=== PATIENT | male | born 1945 | race Caucasian/White ===

== ENCOUNTER 2018-10-02 15:27 | Inpatient (IN) | payer MEDICARE, BC ==
[~2018-10-02] VITALS: Ht 170.2 cm; Wt 89.4 kg
[2018-10-02] MEDS ORDERED: KETOROLAC 15 MG INJ IV STA (17:38)
[2018-10-02] MEDS ORDERED: ONDANSETRON 4 MG INJ IV STA (17:38)
[2018-10-02] MEDS ORDERED: SOD CHLORIDE 0.9% 1,000 ML IV STA (17:38)
[2018-10-02] MEDS ORDERED: CEFTRIAXONE 1 GM/50 ML (PMX) 50 ML IVPB ONE (20:30)
[2018-10-02] MEDS ORDERED: ACETAMINOPHEN 325 MG TAB PO PRN ×2 (21:00→22:30)
[2018-10-02] MEDS ORDERED: ONDANSETRON 4 MG INJ IV PRN ×2 (21:00→22:30)
[2018-10-02] MEDS ORDERED: NACL 0.9% 3 ML SYG IV SCH (22:30)
[2018-10-02] MEDS ORDERED: ALBUTEROL/IPRATROPIUM (NEB) 3 ML AMP HHN PRN (22:30)
[2018-10-02] MEDS ORDERED: TAMSULOSIN (SR) 0.4 MG CAP PO ONE (22:30)
--- NOTE | 2018-10-02 22:52 | CONS ---
Assessment/Plan Assessment/Plan Hospital Course (Demo Recall) 73-year-old male started having severe left flank pain with nausea and vomiting at 9 AM earlier today. He came into the emergency room and had a CT scan of the abdomen and pelvis and that showed: 1. 10 mm calcified stone lodged at the left ureteropelvic junction resulting in left-sided hydronephrosis. 2. Right-sided hydronephrosis with a decompressed renal pelvis and ureter versus parapelvic cyst. 3. 2 low attenuation masses within the right hepatic lobe. Hounsfield units suggest that they are simple cysts. 4. Small diverticulum posterior left urinary bladder wall into which the left ureter drains. 5. 1.5 cm sclerotic/blastic lesion right ilium Patient denies any prior history of kidney stones but he has had bladder stones that were removed and he underwent a transurethral resection of the prostate in May 2016. There was no cancer in his prostate. He did see his urologist few days ago and had a PSA but he does not know the results yet. On the physical exam he does have left flank tenderness. The stone is located just at the left ureteropelvic junction or little bit below it. Impression: Left upper ureteral stone at the ureteropelvic junction with obstruction and hydronephrosis. Plan: Pain medications, KUB, we most likely have to do cystoscopy and try to push the stone back into the kidney and do extracorporeal shockwave lithotripsy or put the JJ stent and at a later date to the extracorporeal shockwave lithotripsy. Consultation Date/Type/Reason Admit Date/Time October 02, 2018 Date of Consultation: Oct 02, 2018 Type of Consult Urology Reason for Consultation Left upper ureteral stone Requesting Provider: KATHRYN GANDARA MD Date/Time of Note DATE: 10/02/18 TIME: 22:41 Hx of Present Illness 73-year-old male started having severe left flank pain with nausea and vomiting at 9 AM earlier today. He came into the emergency room and had a CT scan of the abdomen and pelvis and that showed: 1. 10 mm calcified stone lodged at the left ureteropelvic junction resulting in left-sided hydronephrosis. 2. Right-sided hydronephrosis with a decompressed renal pelvis and ureter versus parapelvic cyst. 3. 2 low attenuation masses within the right hepatic lobe. Hounsfield units suggest that they are simple cysts. 4. Small diverticulum posterior left urinary bladder wall into which the left ureter drains. 5. 1.5 cm sclerotic/blastic lesion right ilium Patient denies any prior history of kidney stones but he has had bladder stones that were removed and he underwent a transurethral resection of the prostate in May 2016. There was no cancer in his prostate. He did see his urologist few days ago and had a PSA but he does not know the results yet. Constitutional: no complaints Eyes: no complaints ENT: no complaints Respiratory: no complaints; No wheezing Cardiovascular: no complaints Gastrointestinal: nausea (Earlier today), vomiting Genitourinary: flank pain (Left side) Musculoskeletal: no complaints Skin: other (Possible psoriasis around the anal area) Neurologic: no complaints Endocrine: no complaints Lymphatic: no complaints Psychological: no complaints Past Medical History Medications Current Medications Ondansetron HCl (Zofran Inj) 4 mg BRIDGE ORDER PRN IV NAUSEA/VOMITING; Start 10/02/18 at 21:00; Stop 10/03/18 at 20:59 Acetaminophen (Tylenol Tab) 650 mg ER BRIDGE PRN PO .MILD PAIN 1-3 OR TEMP; Start 10/02/18 at 21:00; Stop 10/03/18 at 20:59 Sodium Chloride 1,000 ml @ 100 mls/hr Q10H IV ; Start 10/02/18 at 22:13 IV Flush (NS 3 ml) 3 ml PER PROTOCOL IV ; Start 10/02/18 at 22:30 Ondansetron HCl (Zofran Inj) 4 mg Q6H PRN IV NAUSEA/VOMITING; Start 10/02/18 at 22:30 Acetaminophen (Tylenol Tab) 650 mg Q6H PRN PO .PAIN 1-3 OR TEMP; Start 10/02/18 at 22:30 Heparin Sodium (Porcine) (Heparin (5000 Units/1ml)) 5,000 unit Q12 SC ; Start 10/03/18 at 09:00 Albuterol/ Ipratropium (Duoneb) 3 ml Q2H RESP THERAPY PRN HHN SHORTNESS OF BREATH; Start 10/02/18 at 22:30 Ceftriaxone Sodium 50 ml @ 100 mls/hr DAILY IVPB ; Start 10/03/18 at 09:00 Tamsulosin HCl (Flomax) 0.4 mg QHS PO ; Start 10/03/18 at 21:00 Allergies: Coded Allergies: No Known Allergy (Unverified , 10/02/18) Past Surgical History Past Surgical Hx: other (Hernia repair, transurethral resection of prostate, removal of bladder stones.) Social History Alcohol Use: none Smoking Status: Former smoker Drug Use: none Other Social History 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 Scrotum and testes are sensitive) Musculoskeletal: nl extremities to inspection Extremities: No calf tenderness Neurological: nl mental status Skin: nl turgor Results Result Diagram: 10/02/18 1701 10/02/18 1701 Results 24hrs Laboratory Tests Test 10/02/18 17:01 White Blood Count 7.2 Red Blood Count 4.89 Hemoglobin 14.2 Hematocrit 43.5 Mean Corpuscular Volume 89.0 Mean Corpuscular Hemoglobin 29.0 Mean Corpuscular Hemoglobin Concent 32.6 Red Cell Distribution Width 13.2 Platelet Count 170 Mean Platelet Volume 11.0 H Immature Granulocytes % 0.300 Neutrophils % 92.6 H Lymphocytes % 3.3 L Monocytes % 3.6 Eosinophils % 0.1 Basophils % 0.1 Nucleated Red Blood Cells % 0.0 Immature Granulocytes # 0.020 Neutrophils # 6.7 Lymphocytes # 0.2 L Monocytes # 0.3 Eosinophils # 0.0 Basophils # 0.0 Nucleated Red Blood Cells # 0.0 Urine Color YELLOW Urine Clarity SLIGHTLY CLOUDY A Urine pH 5.0 Urine Specific [place] 1.020 Urine Ketones TRACE A Urine Nitrite NEGATIVE Urine Bilirubin NEGATIVE Urine Urobilinogen NEGATIVE Urine Leukocyte Esterase NEGATIVE Urine Microscopic RBC > 182 H Urine Microscopic WBC 2 Urine Mucus FEW A Urine Hemoglobin 3+ H Urine Glucose NEGATIVE Urine Total Protein NEGATIVE Sodium Level 142 Potassium Level 4.7 Chloride Level 110 Carbon Dioxide Level 24 Anion Gap 8 Blood Urea Nitrogen 22 H Creatinine 1.64 H Est Glomerular Filtrat Rate mL/min Glucose Level 125 Calcium Level 8.9 Total Bilirubin 0.8 Direct Bilirubin 0.00 Indirect Bilirubin 0.8 Aspartate Amino Transf (AST/SGOT) 31 Alanine Aminotransferase (ALT/SGPT) 16 Alkaline Phosphatase 49 Total Protein 6.7 Albumin 3.9 Globulin 2.80 Albumin/Globulin Ratio 1.39 Lipase [address] scan of the abdomen and pelvis: 1. 10 mm calcified stone lodged at the left ureteropelvic junction resulting in left-sided hydronephrosis. 2. Right-sided hydronephrosis with a decompressed renal pelvis and ureter versus parapelvic cyst. 3. 2 low attenuation masses within the right hepatic lobe. Hounsfield units suggest that they are simple cysts. 4. Small diverticulum posterior left urinary bladder wall into which the left ureter drains. 5. 1.5 cm sclerotic/blastic lesion right ilium Medications Medication Current Medications Ondansetron HCl (Zofran Inj) 4 mg BRIDGE ORDER PRN IV NAUSEA/VOMITING; Start 10/02/18 at 21:00; Stop 10/03/18 at 20:59 Acetaminophen (Tylenol Tab) 650 mg ER BRIDGE PRN PO .MILD PAIN 1-3 OR TEMP; Start 10/02/18 at 21:00; Stop 10/03/18 at 20:59 Sodium Chloride 1,000 ml @ 100 mls/hr Q10H IV ; Start 10/02/18 at 22:13 IV Flush (NS 3 ml) 3 ml PER PROTOCOL IV ; Start 10/02/18 at 22:30 Ondansetron HCl (Zofran Inj) 4 mg Q6H PRN IV NAUSEA/VOMITING; Start 10/02/18 at 22:30 Acetaminophen (Tylenol Tab) 650 mg Q6H PRN PO .PAIN 1-3 OR TEMP; Start 10/02/18 at 22:30 Heparin Sodium (Porcine) (Heparin (5000 Units/1ml)) 5,000 unit Q12 SC ; Start 10/03/18 at 09:00 Albuterol/ Ipratropium (Duoneb) 3 ml Q2H RESP THERAPY PRN HHN SHORTNESS OF BREATH; Start 10/02/18 at 22:30 Ceftriaxone Sodium 50 ml @ 100 mls/hr DAILY IVPB ; Start 10/03/18 at 09:00 Tamsulosin HCl (Flomax) 0.4 mg QHS PO ; Start 10/03/18 at 21:00 NORRIS TERAN MD Oct 02, 2018 22:52
[2018-10-02 23:00] VITALS: BP 158/74; PULSE 55; RESP 16
[2018-10-02 23:08] VITALS: Ht 170.2 cm; Wt 89.4 kg
[2018-10-02] MEDS: SOD CHLORIDE 0.9% 1,000 ML IV SCH (23:34)
[2018-10-03] VITALS (14 sets, daily range): BP systolic 117–164; BP diastolic 58–82; PULSE 50–60; RESP 11–19
[2018-10-03] MEDS ORDERED: TERA2CAP3 PO (00:44)
--- NOTE | 2018-10-03 06:19 | HP ---
Date/Time of Note Date/Time of Note DATE: 10/02/18 TIME: 23:30 Assessment/Plan VTE Prophylaxis Pharmacological prophylaxis: heparin Lines/Catheters IV C[facility] Type [facility] Peripheral IV Urinary Cath still in place: No Assessment/Plan Assessment/Plan 1. left ureteropelvic junction stone with hydronephrosis -IV fluid -Flomax -Pain management -IV antibiotic -Urology consult -CT also shows right-sided hydronephrosis 2. UTI with likely left-sided pyelonephritis -See #1 -Follow-up urine culture result 3. 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 Right ilium sclerotic/blastic lesion, measuring 1.5 cm -This is concerning for malignancy -CT also shows 2 right hepatic lobe masses, however per radiology most likely cysts -Check CEA, alpha-fetoprotein, PSA -Last colonoscopy a year ago with removal of 3 polyps. -Oncology consult with Dr. Eduardo. Patient reported that he follows up with Dr. Eduardo, launch operator oncologist for "abnormal protein" 5. History of BPH, status post TURP -Continue home med Result Diagram: 10/02/18 1701 10/02/18 1701 Results 24hrs Laboratory Tests Test 10/02/18 17:01 10/02/18 23:53 White Blood Count 7.2 Red Blood Count 4.89 Hemoglobin 14.2 Hematocrit 43.5 Mean Corpuscular Volume 89.0 Mean Corpuscular Hemoglobin 29.0 Mean Corpuscular Hemoglobin Concent 32.6 Red Cell Distribution Width 13.2 Platelet Count 170 Mean Platelet Volume 11.0 H Immature Granulocytes % 0.300 Neutrophils % 92.6 H Lymphocytes % 3.3 L Monocytes % 3.6 Eosinophils % 0.1 Basophils % 0.1 Nucleated Red Blood Cells % 0.0 Immature Granulocytes # 0.020 Neutrophils # 6.7 Lymphocytes # 0.2 L Monocytes # 0.3 Eosinophils # 0.0 Basophils # 0.0 Nucleated Red Blood Cells # 0.0 Urine Color YELLOW Urine Clarity SLIGHTLY CLOUDY A Urine pH 5.0 Urine Specific [place] 1.020 Urine Ketones TRACE A Urine Nitrite NEGATIVE Urine Bilirubin NEGATIVE Urine Urobilinogen NEGATIVE Urine Leukocyte Esterase NEGATIVE Urine Microscopic RBC > 182 H Urine Microscopic WBC 2 Urine Mucus FEW A Urine Hemoglobin 3+ H Urine Glucose NEGATIVE Urine Total Protein NEGATIVE Sodium Level 142 Potassium Level 4.7 Chloride Level 110 Carbon Dioxide Level 24 Anion Gap 8 Blood Urea Nitrogen 22 H Creatinine 1.64 H Est Glomerular Filtrat Rate mL/min Glucose Level 125 Calcium Level 8.9 Total Bilirubin 0.8 Direct Bilirubin 0.00 Indirect Bilirubin 0.8 Aspartate Amino Transf (AST/SGOT) 31 Alanine Aminotransferase (ALT/SGPT) 16 Alkaline Phosphatase 49 Total Protein 6.7 Albumin 3.9 Globulin 2.80 Albumin/Globulin Ratio 1.39 Lipase 54 Prothrombin Time 13.5 Prothrombin Time Ratio 1.1 INR International Normalized Ratio 1.02 Activated Partial Thromboplast Time 24.7 Prostate Specific Antigen 1.1 HPI/ROS Admit Date/Time Admit Date/Time October 02, 2018 Hx of Present Illness Patient is a 73-year-old male with a history of BPH status post TURP, bladder stone X2 status post surgical removal (over 10 years ago), left-sided kidney stone about 4 years ago, right inguinal surgery, migraine headache, genital herpes who presented to ER complaining of abdominal pain. Pain has been going on for about 3 days and is mainly located in the left lower quadrant area. Reported nausea and vomiting. He was sent by his PCP for evaluation. CT abdomen/pelvis in the ER shows the followin. 10 mm calcified stone lodged at the left ureteropelvic junction resulting in left-sided hydronephrosis. 2. Right-sided hydronephrosis with a decompressed renal pelvis and ureter versus parapelvic cyst. 3. 2 low attenuation masses within the right hepatic lobe. Hounsfield units suggest that they are simple cysts. 4. Small diverticulum posterior left urinary bladder wall into which the left ureter drains. 5. 1.5 cm sclerotic/blastic lesion right ilium On further questioning, patient stated that he has been following up with Dr. Eduardo for " abnormal protein". He said he had a colonoscopy a year ago with removal of 2 or 3 polyps. Denies dark stool or BRBPR. PMH/Family/Social Past Medical History Past Surgical Hx: other Family History Significant Family History: no pertinent family hx Social History Alcohol Use: none Smoking Status: Never smoker Drug Use: none Exam Constitutional: other (No acute distress) Head: normocephalic, atraumatic Eyes: EOMI, PERRL Respiratory: clear to auscultation, normal air movement Cardiovascular: regular rate and rhythm Gastrointestinal: soft Extremities: normal pulses Medications Current Medications Ondansetron HCl (Zofran Inj) 4 mg BRIDGE ORDER PRN IV NAUSEA/VOMITING; Start 10/02/18 at 21:00; Stop 10/03/18 at 20:59 Acetaminophen (Tylenol Tab) 650 mg ER BRIDGE PRN PO .MILD PAIN 1-3 OR TEMP; Start 10/02/18 at 21:00; Stop 10/03/18 at 20:59 Sodium Chloride 1,000 ml @ 100 mls/hr Q10H IV Last administered on 10/02/18at 23:34; Admin Dose 100 MLS/HR; Start 10/02/18 at 22:13 IV Flush (NS 3 ml) 3 ml PER PROTOCOL IV ; Start 10/02/18 at 22:30 Ondansetron HCl (Zofran Inj) 4 mg Q6H PRN IV NAUSEA/VOMITING; Start 10/02/18 at 22:30 Acetaminophen (Tylenol Tab) 650 mg Q6H PRN PO .PAIN 1-3 OR TEMP; Start 10/02/18 at 22:30 Heparin Sodium (Porcine) (Heparin (5000 Units/1ml)) 5,000 unit Q12 SC ; Start 10/03/18 at 09:00 Albuterol/ Ipratropium (Duoneb) 3 ml Q2H RESP THERAPY PRN HHN SHORTNESS OF BREATH; Start 10/02/18 at 22:30 Ceftriaxone Sodium 50 ml @ 100 mls/hr DAILY IVPB ; Start 10/03/18 at 09:00 Tamsulosin HCl (Flomax) 0.4 mg QHS PO ; Start 10/03/18 at 21:00 Coded Allergies: No Known Allergy (Unverified , 10/02/18) Past Surgical History Past Surgical Hx: other (Hernia repair, transurethral resection of prostate, removal of bladder stones.) Social History Alcohol Use: none Smoking Status: Former smoker Drug Use: none Exam/Review of Systems Vital Signs Vitals Vital Signs Date Temp Pulse Resp B/P (MAP) Pulse Ox O2 O2 Flow FiO2 Time Delivery Rate 10/02/18 97.9 55 16 158/74 97 Room Air 23:00 (102) Intake and Output 10/02/18 10/02/18 10/03/18 1515:00 23:00 07:00 IntakeIntake Total 1050 ml 550 ml BalanceBalance 1050 ml 550 ml KATHRYN GANDARA MD Oct 03, 2018 06:19
[2018-10-03] MEDS: HEPARIN 5,000 UNIT/1 ML VIAL SC SCH ×2 (08:29→22:18)
[2018-10-03] MEDS: CEFTRIAXONE 1 GM/50 ML (PMX) 50 ML IVPB SCH (08:45)
[2018-10-03] MEDS: SOD CHLORIDE 0.9% 1,000 ML IV SCH ×2 (08:45→18:05)
--- NOTE | 2018-10-03 15:00 | RADRPT ---
Vent Rate: 54 bpm RR Interval: 1112 msec NH Interval: 168 msec QRS Duration: 93 msec QT Interval: 428 msec QTC Interval: 406 msec P-R-T [place]: 59 - -30 - 43 degrees Sinus rhythm...normal P axis, V-rate 50- 99 Left axis deviation...QRS axis (-30,-90) Low voltage, extremity leads...all extremity leads <0.5mV Electronically Signed By: Perry Rebollar
--- NOTE | 2018-10-03 15:26 | CONS ---
DATE OF ADMISSION: 10/02/2018 DATE OF CONSULTATION: 10/03/2018 TYPE OF CONSULTATION: Nephrology. REASON FOR CONSULTATION: Acute kidney injury. PHYSICIAN REQUESTING CONSULT: Dr. Kathryn Gandara, and STORAGE ARCHITECT, . HISTORY OF PRESENT ILLNESS: This is a 73-year-old male with a past medical history of BPH, status po st TURP, history of bladder stone, status post surgical removal 10 years ago, history of left-sided k idney stone, history of migraine, history of genital herpes, who presents to [facility] Room with abdominal pain. The patient states for the past 3 days he has been having left-sided quadrant pain associated with nausea, vomiting. As a result, he came to Emergency Room, the patient had a CT scan which showed evidence of a 10 mm calcified stone in the right-sided ureteropelvic junc tion with decompressed renal pelvis and ureter, pelvic cyst. PHYSICAL EXAMINATION: In the emergency room, the patient was placed on IV fluids and admitted to med /surg for evaluation. The patient was seen by Dr. Abrams, urologist with expectation of possible cy stoscopy. In terms of patient's renal history, the patient denies any prior history of acute kidney injury, chr onic kidney disease. On admission, patient had creatinine 1.61 mg/dL. The patient's creatinine has increased to 1.8 mg/dL, patient denies any hemoptysis, hematemesis or hematochezia. PAST MEDICAL HISTORY: History of benign prostatic hypertrophy, history of kidney stone, history of s clerotic lesions. FAMILY HISTORY: No family history of kidney disease. SOCIAL HISTORY: Does not smoke or do drugs. Positive alcohol use. ALLERGIES: No known drug allergies. PAST SURGICAL HISTORY: The patient is status post TURP, status post bladder stone physical removal, possible hernia repair. REVIEW OF SYSTEMS: A 14-point review of systems conducted. Pertinent positives stated in HPI, other ghosh negative. PHYSICAL EXAMINATION: VITAL SIGNS: Blood pressure is 152/77, respiration 19, pulse 60, temperature 98.0. HEENT: Head is normocephalic. NECK: Supple. HEART: Regular rate. LUNGS: Show diminished breath sounds at the base. ABDOMEN: Soft, nontender to palpation without rebound or guarding. EXTREMITIES: Negative for clubbing, cyanosis, no edema. DERMATOLOGIC: No rashes. MUSCULOSKELETAL: No joint effusion. NEUROLOGIC: No focal deficits. MEDICATIONS: Have been reviewed. LABORATORY DATA: Has been reviewed. IMAGING STUDIES: Have been reviewed. ASSESSMENT AND PLAN: This is a 73-year-old male who presents with: 1. Nonoliguric acute kidney injury with unknown baseline creatinine. Etiology of acute kidney injur y is secondary to obstructive uropathy, bilateral hydronephrosis due to ureteropelvic stone. Other p ossibilities such as tubular injury or interstitial nephritis are less likely given clinical presenta tion. Recommendation at this point, continue the patient on aggressive IV hydration. Agree with a u rological evaluation and possible cystoscopy with stone removal. Would also continue antibiotic ther apy. We will otherwise continue supportive care, renally dose all meds, avoid nephrotoxins. 2. Anemia. Continue to monitor hemoglobin and hematocrit levels. 3. Mineral bone disorder, monitor calcium and phosphorus levels. 4. Hyperchloremic metabolic acidosis. Continue to monitor. 5. Left ureteropelvic junction with hydronephrosis. The patient has been seen by urology pending po ssible cystoscopy with stone retraction. 6. Urinary tract infection. Continue IV antibiotics. 7. Right hepatic lobe mass, likely cyst. Continue to monitor. 8. Right ilium lesion. The patient is undergoing workup. Follow up CEA, alpha fetoprotein, PSA lev el. Continue to monitor. 9. Benign prostatic hypertrophy status post TURP. Continue to monitor. Thank you for this interesting consult. It will be a pleasure to follow patient with you throughout the hospital course. Dictated By: AIDEN GOMES DO NR/NTS Conf#: [id number] DID#: [id number] CC: KATHRYN GANDARA MD;*EndCC*
--- NOTE | 2018-10-03 16:09 | PN ---
Date/Time of Note Date/Time of Note DATE: 10/03/18 TIME: 16:04 Assessment/Plan VTE Prophylaxis Risk score (from Ns)>0 risk: 1 SCD applied (from [facility]): No SCD contraindicated: other Pharmacological prophylaxis: heparin Lines/Catheters IV Catheter Type (from [facility]): Peripheral IV Urinary Cath still in place: No Assessment/Plan Hospital Course 1. left ureteropelvic junction stone with hydronephrosis -IV fluid -Flomax -Pain management -Urology eval pending 2. UTI with likely left-sided pyelonephritis - continue on abx for now -Follow-up urine culture result 3. 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 Eduardo was notified) - f/u recommendations -CT also shows 2 right hepatic lobe masses, however per radiology most likely cysts -Last colonoscopy a year ago with removal of 3 polyps. 5. History of BPH, status post TURP - continue on flomax DISPO.PLAN: continue pain management. continue with abx. urology eval is pending. continue supportive care for now Discussed POC with Dr. Land Result Diagram: 10/03/18 0552 10/03/18 0552 Results 24hrs Laboratory Tests Test 10/02/18 17:01 10/02/18 23:53 10/03/18 05:52 White Blood Count 7.2 4.6 #L Red Blood Count 4.89 4.13 L Hemoglobin 14.2 11.9 L Hematocrit 43.5 36.5 L Mean Corpuscular Volume 89.0 88.4 Mean Corpuscular Hemoglobin 29.0 28.8 L Mean Corpuscular 32.6 32.6 Hemoglobin Concent Red Cell Distribution Width 13.2 13.4 Platelet Count 170 154 Mean Platelet Volume 11.0 H 11.3 H Immature Granulocytes % 0.300 0.400 Neutrophils % 92.6 H 68.6 Lymphocytes % 3.3 L 20.1 Monocytes % 3.6 9.8 Eosinophils % 0.1 0.9 Basophils % 0.1 0.2 Nucleated Red Blood Cells % 0.0 0.0 Immature Granulocytes # 0.020 0.020 Neutrophils # 6.7 3.1 Lymphocytes # 0.2 L 0.9 Monocytes # 0.3 0.5 Eosinophils # 0.0 0.0 Basophils # 0.0 0.0 Nucleated Red Blood Cells # 0.0 0.0 Urine Color YELLOW Urine Clarity SLIGHTLY CLOUDY A Urine pH 5.0 Urine Specific Orange 1.020 Urine Ketones TRACE A Urine Nitrite NEGATIVE Urine Bilirubin NEGATIVE Urine Urobilinogen NEGATIVE Urine Leukocyte Esterase NEGATIVE Urine Microscopic RBC > 182 H Urine Microscopic WBC 2 Urine Mucus FEW A Urine Hemoglobin 3+ H Urine Glucose NEGATIVE Urine Total Protein NEGATIVE Sodium Level 142 142 Potassium Level 4.7 4.6 Chloride Level 110 112 H Carbon Dioxide Level 24 25 Anion Gap 8 5 Blood Urea Nitrogen 22 H 24 H Creatinine 1.64 H 1.82 H Est Glomerular Filtrat Rate mL/min Glucose Level 125 91 Calcium Level 8.9 8.0 L Total Bilirubin 0.8 1.0 Direct Bilirubin 0.00 0.00 Indirect Bilirubin 0.8 1.0 Aspartate Amino 31 13 #L Transf (AST/SGOT) Alanine 16 17 Aminotransferase (ALT/SGPT) Alkaline Phosphatase 49 31 L Total Protein 6.7 5.0 #L Albumin 3.9 2.8 #L Globulin 2.80 2.20 Albumin/Globulin Ratio 1.39 1.27 Lipase 54 Prothrombin Time 13.5 Prothrombin Time Ratio 1.1 INR International 1.02 Normalized Ratio Activated Partial Thromboplast 24.7 Time Prostate Specific Antigen 1.1 Phosphorus Level 4.1 Magnesium Level 1.9 Alpha Fetoprotein 5.99 Carcinoembryonic Antigen 0.4 Subjective 24 Hr Interval Summary Free Text/Dictation was seen walking around unit during interview., reports less pain Exam/Review of Systems Exam Vitals Vital Signs Date Temp Pulse Resp B/P (MAP) Pulse Ox O2 O2 Flow FiO2 Time Delivery Rate 10/03/18 98.1 58 18 117/58 98 Room Air 14:00 (77) Intake and Output 10/02/18 10/02/18 10/03/18 1414:59 22:59 06:59 IntakeIntake Total 1050 ml 550 ml BalanceBalance 1050 ml 550 ml Constitutional: alert, oriented Psych: nl mood/affect Head: normocephalic Neck: supple, non-tender Respiratory: clear to auscultation Cardiovascular: regular rate and rhythm Gastrointestinal: soft, non-tender Musculoskeletal: nl extremities to inspection Neurological: [employer] 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 intact, nl mental status, nl speech Skin: nl turgor Results Results 24hrs Laboratory Tests Test 10/02/18 17:01 10/02/18 23:53 10/03/18 05:52 White Blood Count 7.2 4.6 #L Red Blood Count 4.89 4.13 L Hemoglobin 14.2 11.9 L Hematocrit 43.5 36.5 L Mean Corpuscular Volume 89.0 88.4 Mean Corpuscular Hemoglobin 29.0 28.8 L Mean Corpuscular 32.6 32.6 Hemoglobin Concent Red Cell Distribution Width 13.2 13.4 Platelet Count 170 154 Mean Platelet Volume 11.0 H 11.3 H Immature Granulocytes % 0.300 0.400 Neutrophils % 92.6 H 68.6 Lymphocytes % 3.3 L 20.1 Monocytes % 3.6 9.8 Eosinophils % 0.1 0.9 Basophils % 0.1 0.2 Nucleated Red Blood Cells % 0.0 0.0 Immature Granulocytes # 0.020 0.020 Neutrophils # 6.7 3.1 Lymphocytes # 0.2 L 0.9 Monocytes # 0.3 0.5 Eosinophils # 0.0 0.0 Basophils # 0.0 0.0 Nucleated Red Blood Cells # 0.0 0.0 Urine Color YELLOW Urine Clarity SLIGHTLY CLOUDY A Urine pH 5.0 Urine Specific Orange 1.020 Urine Ketones TRACE A Urine Nitrite NEGATIVE Urine Bilirubin NEGATIVE Urine Urobilinogen NEGATIVE Urine Leukocyte Esterase NEGATIVE Urine Microscopic RBC > 182 H Urine Microscopic WBC 2 Urine Mucus FEW A Urine Hemoglobin 3+ H Urine Glucose NEGATIVE Urine Total Protein NEGATIVE Sodium Level 142 142 Potassium Level 4.7 4.6 Chloride Level 110 112 H Carbon Dioxide Level 24 25 Anion Gap 8 5 Blood Urea Nitrogen 22 H 24 H Creatinine 1.64 H 1.82 H Est Glomerular Filtrat Rate mL/min Glucose Level 125 91 Calcium Level 8.9 8.0 L Total Bilirubin 0.8 1.0 Direct Bilirubin 0.00 0.00 Indirect Bilirubin 0.8 1.0 Aspartate Amino 31 13 #L Transf (AST/SGOT) Alanine 16 17 Aminotransferase (ALT/SGPT) Alkaline Phosphatase 49 31 L Total Protein 6.7 5.0 #L Albumin 3.9 2.8 #L Globulin 2.80 2.20 Albumin/Globulin Ratio 1.39 1.27 Lipase 54 Prothrombin Time 13.5 Prothrombin Time Ratio 1.1 INR International 1.02 Normalized Ratio Activated Partial Thromboplast 24.7 Time Prostate Specific Antigen 1.1 Phosphorus Level 4.1 Magnesium Level 1.9 Alpha Fetoprotein 5.99 Carcinoembryonic Antigen 0.4 Medications Medication Current Medications Sodium Chloride 1,000 ml @ 100 mls/hr Q10H IV Last administered on 10/03/18at 08:45; Admin Dose 100 MLS/HR; Start 10/02/18 at 22:13 IV Flush (NS 3 ml) 3 ml PER PROTOCOL IV ; Start 10/02/18 at 22:30 Ondansetron HCl (Zofran Inj) 4 mg Q6H PRN IV NAUSEA/VOMITING; Start 10/02/18 at 22:30 Acetaminophen (Tylenol Tab) 650 mg Q6H PRN PO .PAIN 1-3 OR TEMP; Start 10/02/18 at 22:30 Heparin Sodium (Porcine) (Heparin (5000 Units/1ml)) 5,000 unit Q12 SC ; Start 10/03/18 at 09:00 Albuterol/ Ipratropium (Duoneb) 3 ml Q2H RESP THERAPY PRN HHN SHORTNESS OF BREATH; Start 10/02/18 at 22:30 Ceftriaxone Sodium 50 ml @ 100 mls/hr DAILY IVPB Last administered on 10/03/18at 08:45; Admin Dose 100 MLS/HR; Start 10/03/18 at 09:00 Tamsulosin HCl (Flomax) 0.4 mg QHS PO ; Start 10/03/18 at 21:00 ALVINA EDGAR NP Oct 03, 2018 16:09
--- NOTE | 2018-10-03 18:08 | HPN ---
Date/Time of Note Date/Time of Note DATE: 10/03/18 TIME: 18:06 Interval H&P Admission Note Pt. seen H&P reviewed: No system changes I did explain to the patient the procedure. His creatinine has gone up and therefore the plan would be to do a cystoscopy and insert of left ureteral JJ stent. Will try to see if we could push the stone back into the kidney so we could do extracorporeal shockwave lithotripsy on it later on. If we cannot push the stone back into the kidney and would put the JJ stent in then later on who will do ureteroscopy and laser lithotripsy. I spent over 15 minutes discussing with him the treatment options and the time of the treatments, the benefits the risks and the possible complications. I answered all of his questions and concerns and he is agreeable to proceed. NORRIS TERAN MD Oct 03, 2018 18:08
--- NOTE | 2018-10-03 18:22 | PREAC ---
Date/Time of Note Date/Time of Note DATE: 10/03/18 TIME: 18:20 Anesthesia Eval and Record Evaluation Time Pre-Procedure Interview DATE: 10/03/18 TIME: 18:20 Age 73 Sex male NPO: 8 hrs Preoperative diagnosis left ureteropelvic junction stone with hydronephrosis Planned procedure Cystoscopy and insertion of left ureteral JJ stent Past Medical History Past Medical History: Includes Renal: MUSHTAQ, BPH (s/p TURP) Hepatic: Other (hepatic lesions, likely cysts) Surgery & Anesthesia Issues No known issue Meds Anticoagulation: No Beta Gladys within 24 hr: No Reason Beta Gladys not given: Pt. not on B-Gladys Reported Medications Terazosin Hcl* (Terazosin Hcl*) 2 Mg Capsule, 2 MG PO DAILY 10/03/18 Current Medications Sodium Chloride 1,000 ml @ 100 mls/hr Q10H IV Last administered on 10/03/18at 18:05; Admin Dose 100 MLS/HR; Start 10/02/18 at 22:13 IV Flush (NS 3 ml) 3 ml PER PROTOCOL IV ; Start 10/02/18 at 22:30 Ondansetron HCl (Zofran Inj) 4 mg Q6H PRN IV NAUSEA/VOMITING; Start 10/02/18 at 22:30 Acetaminophen (Tylenol Tab) 650 mg Q6H PRN PO .PAIN 1-3 OR TEMP; Start 10/02/18 at 22:30 Heparin Sodium (Porcine) (Heparin (5000 Units/1ml)) 5,000 unit Q12 SC ; Start 10/03/18 at 09:00 Albuterol/ Ipratropium (Duoneb) 3 ml Q2H RESP THERAPY PRN HHN SHORTNESS OF BREATH; Start 10/02/18 at 22:30 Ceftriaxone Sodium 50 ml @ 100 mls/hr DAILY IVPB Last administered on 10/03/18at 08:45; Admin Dose 100 MLS/HR; Start 10/03/18 at 09:00 Tamsulosin HCl (Flomax) 0.4 mg QHS PO ; Start 10/03/18 at 21:00 Meds reviewed: Yes Allergies Coded Allergies: No Known Allergy (Unverified , 10/02/18) Allergies Reviewed: Yes Labs/Studies Labs Reviewed: Reviewed by anesthesiologist Result Diagram: 10/03/18 0552 10/03/18 0552 Laboratory Tests 10/03/18 05:52 test: N/A Studies: ECG, CXR Pre-procedure Exam Last vitals Vital Signs Date Temp Pulse Resp B/P (MAP) Pulse Ox O2 O2 Flow FiO2 Time Delivery Rate 10/03/18 98.1 58 18 117/58 98 Room Air 14:00 (77) Airway: Adequate mouth opening, Adequate thyromental dist Mallampati: Mallampati II Teeth: Normal Lung: Normal Heart: Normal ASA Physical Status ASA physical status: 2 Emergency: None Planned Anesthetic General/MAC: LMA Planned Pain Management Parenteral pain med Pre-operative Attestations Prior to commencing anesthesia and surgery, the patient was re-evaluated, there was verification of: *The patient's identity *The results of appropriate recent lab work and preoperative vital signs *The above evaluation not changing prior to induction *Anesthetic plan, risk benefits, alternative and complications discussed with patient/family; questions answered; patient/family understands, accepts and wishes to proceed. LELE ARREOLA MD Oct 03, 2018 18:22
[2018-10-03] MEDS ORDERED: IOHEXOL 300MG/ML 30 ML BTL ONE (19:02)
[2018-10-03] MEDS ORDERED: LIDOCAINE 2% 20 ML UROJET SYRINGE ONE (19:27)
[2018-10-03] MEDS ORDERED: EPHEDrine 25 MG/5 ML SYG ONE (19:30)
[2018-10-03] MEDS ORDERED: LIDOCAINE 2% (SDV) 5 ML INJ ONE (19:32)
[2018-10-03] MEDS ORDERED: PROPOFOL 20 ML ONE (19:32)
[2018-10-03] MEDS ORDERED: FENTAnyl 50 MCG/ML VIAL ONE (19:33)
[2018-10-03] MEDS ORDERED: MIDAZOLAM 1 MG/ML 2 ML INJ ONE (19:33)
[2018-10-03] MEDS ORDERED: CEFAZOLIN 1 GM INJ ONE (19:42)
[2018-10-03] MEDS ORDERED: ONDANSETRON 4 MG INJ ONE (19:46)
[2018-10-03] MEDS ORDERED: DEXAMETHASONE 4 MG/ML 5 ML INJ ONE (19:46)
[2018-10-03] MEDS ORDERED: FAMOTIDINE 20 MG INJ ONE (19:46)
--- NOTE | 2018-10-03 20:36 | PAC ---
Date/Time of Note Date/Time of Note DATE: 10/03/18 TIME: 20:35 Post-Anesthesia Notes Post-Anesthesia Note Last documented vital signs Vital Signs Date Temp Pulse Resp B/P (MAP) Pulse Ox O2 O2 Flow FiO2 Time Delivery Rate 10/03/18 98.6 20:32 10/03/18 58 18 117/58 98 Room Air 14:00 (77) Activity: WNL Respiratory function: WNL Cardiovascular function: Other (HR 50s at baseline. asymptomatic ) Mental status: Baseline Pain reasonably controlled: Yes Hydration appropriate: Yes Nausea/Vomiting absent: Yes Comments BP: 133/77 HR: 55 RR: 15 T: 98.6 SaO2: 100 LELE ARREOLA MD Oct 03, 2018 20:36
--- NOTE | 2018-10-03 20:37 | OPR ---
Date/Time of Note Date/Time of Note DATE: 10/03/18 TIME: 20:30 Operative Report Procedure Date: Oct 03, 2018 Preoperative Diagnosis Left upper ureteral stone with hydronephrosis Postoperative Diagnosis Same Operation/Procedure Performed Cystoscopy, manipulation of left ureteral stone and insertion of left ureteral JJ stent 6 Georgian by 24 cm long Surgeon see signature line [employer] Site Manager Tiarra Suarez Anesthesia Type: general Anesthesiologist: LELE ARREOLA MD Estimated Blood Loss: none Transfusion none Specimen None Grafts/Implants none Complications none Pt Condition Post Procedure: stable Disposition: PACU Indications Left upper ureteral stone with obstruction and hydronephrosis Procedure Description Patient was brought to the operating room and general anesthesia was given. The patient was positioned in the lithotomy position and the genital area was prepped and draped in the usual sterile manner. The patient was given 2 g of Ancef IV at the start of the procedure. Timeout was done and the patient was identified by his name, birthdate, and the procedure on the side of the procedure. #22 Georgian cystoscope sheath was then introduced under direct vision through the penile urethra all the way to the bladder. The patient has an enlargement of the prostate and he has also calcification in the prostatic fossa. The bladder was inspected the right ureteral orifice was identified and was in the normal location and shape. However the left ureteral orifice was located in the diverticulum that the patient has and it is on the medial side of the diverticulum. I had to use the 70 degree lens to be able to see the ureteral orifice. At that moment I passed a 6 Georgian open ended ureteral catheter and through it a 0.035 zip wire and I advanced the zip wire into the ureter and then advanced it under fluoroscopy all the way to the level of the stone. Once it reached the stone the zip wire would not advance because the stone was obstructing the ureter. I removed the zip wire and placed the open ended below the stone. I then used a mixture of 2% lidocaine with equal amount of normal saline and under fluoroscopy I have flushed the stone back into the kidney. Then I advanced the zip wire back into the open ended all the way up to the kidney and removed the open ended. On the zip wire I then advanced a 6 Georgian by 24 cm long JJ stent and had its proximal end curled into the kidney and the distal end curling into the bladder. The bladder was then emptied and the patient was transferred to the recovery room in a stable and satisfactory condition. NORRIS TERAN MD Oct 03, 2018 20:37
[2018-10-03] MEDS ORDERED: TAMSULOSIN (SR) 0.4 MG CAP PO SCH (21:00)
[2018-10-04] MEDS: SOD CHLORIDE 0.9% 1,000 ML IV SCH ×2 (04:13→09:20)
[2018-10-04 07:51] VITALS: BP 146/76; PULSE 58; RESP 16
--- NOTE | 2018-10-04 08:49 | PN ---
DATE: 10/04/2018 SUBJECTIVE: The patient is stable. Yesterday, the patient underwent a cystoscopy with double-J sten t placement and manipulation of left ureteral stone. No other acute events noted. No hemoptysis, he matemesis or hematochezia. OBJECTIVE: VITAL SIGNS: Blood pressure is 146/76, respirations 16, pulse 58, temperature 97.9. HEENT: Head is normocephalic. NECK: Supple. HEART: Regular rate. LUNGS: Show diminished breath sounds at the base. ABDOMEN: Soft, nontender to palpation without rebound or guarding. EXTREMITIES: Negative for clubbing, cyanosis, no edema. DERMATOLOGIC: No rashes. MUSCULOSKELETAL: No joint effusion. NEUROLOGIC: No change in exam. MEDICATIONS: The patient's medications have been reviewed. LABORATORY DATA: The laboratory data has been reviewed. IMAGING STUDIES: The imaging studies have been reviewed. ASSESSMENT AND PLAN: 1. Nonoliguric acute kidney injury with unknown baseline creatinine. Etiology is secondary to obstr uctive uropathy, bilateral hydronephrosis. The patient is status post cystoscopy with manipulation o f left ureteral stone and double-J stent placement. Renal function has improved. We will continue c urrent treatment plan. Continue IV hydration. 2. Anemia. Monitor hemoglobin and hematocrit levels. 3. Mineral bone disorder. Monitor calcium and phosphorus levels. 4. Metabolic acidosis. Continue to monitor. 5. Left ureteropelvic stone with bilateral hydronephrosis. The patient is status post cystoscopy wi th double-J stent placement. Continue to monitor. Follow up with urology. Follow up imaging studie s. 6. Urinary tract infection. Continue current antibiotic regimen. 7. Right hepatic lobe mass, likely cyst. Continue to monitor. 8. Right ileal sclerotic lesion. Workup is ongoing. The patient is being followed by hematology in the outpatient setting. 9. History of benign prostatic hypertrophy, history of TURP. Continue to monitor. Dictated By: AIDEN GOMES DO NR/NTS Conf#: [id number] DID#: [id number] CC: KATHRYN GANDARA MD; NORRIS TERAN MD;*EndCC*
[2018-10-04] MEDS: CEFTRIAXONE 1 GM/50 ML (PMX) 50 ML IVPB SCH (09:20)
[2018-10-04] MEDS: HEPARIN 5,000 UNIT/1 ML VIAL SC SCH (09:27)
--- NOTE | 2018-10-04 10:10 | PDOCDIS ---
Discharge Instructions DIAGNOSIS Discharge Diagnosis 1. left ureteropelvic junction stone with hydronephrosis 2. UTI with likely left-sided pyelonephritis 3. 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 Right ilium sclerotic/blastic lesion, measuring 1.5 cm (concerning for malignancy) 5. History of BPH, status post TURP CONDITION [id number] Patient Condition: [id number] Stable HOME CARE INSTRUCTIONS: [id number] Diet Instructions: [id number] Low Fat /Cholesterol FOLLOW UP/APPOINTMENTS Follow-up Plan Follow up with Dr. Juan Abrams 10/07/18 Office Follow up with Dr. Huan Gardner in 2 weeks for follow up on your kidney function Office Address [id number] [facility] [id number] [place] [address] Office Follow up with Dr. Bart Eduardo in 2 weeks ALVINA EDGAR NP Oct 04, 2018 10:10
[2018-10-04] MEDS ORDERED: HYDR-4011 PO (10:14)
[2018-10-04] MEDS ORDERED: CEPH-443 PO (10:14)
--- NOTE | 2018-10-04 10:16 | CONS ---
Consult Date/Type/Reason Admit Date/Time Oct 02, 2018 at 22:13 Initial Consult Date 10/02/18 Type of Consultation: Urology Reason for Consultation Left renal stone Requesting Provider: KATHRYN GANDARA MD Date/Time of Note DATE: 10/04/18 TIME: 10:14 Subjective Patient is status post ureteroscopy, stone manipulation and insertion of left ureteral JJ stent. He is doing well and has no pain. He is voiding and the urine is clear. Objective Vitals Vital Signs Date Temp Pulse Resp B/P (MAP) Pulse Ox O2 O2 Flow FiO2 Time Delivery Rate 10/04/18 97.9 58 16 146/76 97 07:51 (99) 10/03/18 Room Air 21:19 10/03/18 5.0 20:39 Intake and Output 10/03/18 10/03/18 10/04/18 1414:59 22:59 06:59 IntakeIntake Total 900 ml 1800 ml 1820 ml OutputOutput Total 300 ml 5 ml 600 ml BalanceBalance 600 ml 1795 ml 1220 ml Exam The abdomen is soft and there is no flank tenderness. His creatinine has come down to 1.45. He is afebrile Results/Medications Result Diagram: 10/04/18 0509 10/04/18 0509 Results 24 hrs Laboratory Tests Test 10/04/18 05:09 White Blood Count 3.4 #L Red Blood Count 4.35 L Hemoglobin 12.3 L Hematocrit 38.7 L Mean Corpuscular Volume 89.0 Mean Corpuscular Hemoglobin 28.3 L Mean Corpuscular Hemoglobin Concent 31.8 L Red Cell Distribution Width 13.7 Platelet Count 131 L Mean Platelet Volume 11.2 H Immature Granulocytes % 0.300 Neutrophils % 89.0 H Lymphocytes % 8.6 L Monocytes % 2.1 Eosinophils % 0.0 Basophils % 0.0 Nucleated Red Blood Cells % 0.0 Immature Granulocytes # 0.010 Neutrophils # 3.0 Lymphocytes # 0.3 L Monocytes # 0.1 L Eosinophils # 0.0 Basophils # 0.0 Nucleated Red Blood Cells # 0.0 Sodium Level 139 Potassium Level 4.8 Chloride Level 110 Carbon Dioxide Level 22 Anion Gap 7 Blood Urea Nitrogen 25 H Creatinine 1.45 H Est Glomerular Filtrat Rate mL/min Glucose Level 145 # Calcium Level 7.9 L Home Meds Reported Medications Terazosin Hcl* (Terazosin Hcl*) 2 Mg Capsule, 2 MG PO DAILY 10/03/18 Medications Current Medications Sodium Chloride 1,000 ml @ 100 mls/hr Q10H IV Last administered on 10/04/18at 09:20; Admin Dose 100 MLS/HR; Start 10/02/18 at 22:13 IV Flush (NS 3 ml) 3 ml PER PROTOCOL IV ; Start 10/02/18 at 22:30 Ondansetron HCl (Zofran Inj) 4 mg Q6H PRN IV NAUSEA/VOMITING; Start 10/02/18 at 22:30 Acetaminophen (Tylenol Tab) 650 mg Q6H PRN PO .PAIN 1-3 OR TEMP; Start 10/02/18 at 22:30 Heparin Sodium (Porcine) (Heparin (5000 Units/1ml)) 5,000 unit Q12 SC Last administered on 10/04/18at 09:27; Admin Dose 5,000 UNIT; Start 10/03/18 at 09:00 Albuterol/ Ipratropium (Duoneb) 3 ml Q2H RESP THERAPY PRN HHN SHORTNESS OF B REATH; Start 10/02/18 at 22:30 Ceftriaxone Sodium 50 ml @ 100 mls/hr DAILY IVPB Last administered on 10/04/18at 09:20; Admin Dose 100 MLS/HR; Start 10/03/18 at 09:00 Tamsulosin HCl (Flomax) 0.4 mg QHS PO Last administered on 10/03/18at 22:16; Admin Dose 0.4 MG; Start 10/03/18 at 21:00 Assessment/Plan Hospital Course (Demo Recall) 73-year-old male started having severe left flank pain with nausea and vomiting at 9 AM earlier today. He came into the emergency room and had a CT scan of the abdomen and pelvis and that showed: 1. 10 mm calcified stone lodged at the left ureteropelvic junction resulting in left-sided hydronephrosis. 2. Right-sided hydronephrosis with a decompressed renal pelvis and ureter versus parapelvic cyst. 3. 2 low attenuation masses within the right hepatic lobe. Hounsfield units suggest that they are simple cysts. 4. Small diverticulum posterior left urinary bladder wall into which the left ureter drains. 5. 1.5 cm sclerotic/blastic lesion right ilium Patient denies any prior history of kidney stones but he has had bladder stones that were removed and he underwent a transurethral resection of the prostate in May 2016. There was no cancer in his prostate. He did see his urologist few days ago and had a PSA but he does not know the results yet. Patient is doing well post cystoscopy and insertion of left ureteral JJ stent. He may be discharged home today on oral antibiotics and pain medications as needed and he is already scheduled to have extracorporeal shockwave lithotripsy and removal of the JJ stent on Sunday as an outpatient at [facility]. The patient was given the instructions and he should be there at 6 AM Sunday. NORRIS TERAN MD Oct 04, 2018 10:16
--- NOTE | 2018-10-04 14:32 | DS ---
Date/Time of Note Date/Time of Note DATE: 10/04/18 TIME: 14:32 Discharge Summary Admission/Discharge Info Admit Date/Time Oct 02, 2018 at 22:13 Discharge Date/Time Discharge Diagnosis 1. left ureteropelvic junction stone with hydronephrosis 2. UTI with likely left-sided pyelonephritis 3. 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 Right ilium sclerotic/blastic lesion, measuring 1.5 cm (concerning for malignancy) 5. History of BPH, status post TURP Patient Condition: Stable Hospital Course This Is a 73-year-old male with history of BPH, status post TURP, bladder stone x2 status post surgical removal over 10 years ago, left-sided renal stone about 4 years ago, inguinal hernia, migraine headache, genital herpes, came to the hospital due to reports of left lower quadrant abdominal pain. He did have CT scan of the abdomen and pelvis showing 2 mm calcified stone lodged at the left ureteropelvic junction resulting in left-sided hydronephrosis. Patient was seen by urologist. Patient did undergo stent insertion and cystoscopy with insertion of left ureteral JJ stent. He did tolerate well. We did monitor his renal function which initially was worse on admission but did improve status post stent placement. 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 He was resumed on Enrico Zosyn for discharge on home. He was otherwise optimized medically. He did have UTI with suspected pyelonephritis. He remained afebrile on the day of discharge and we did discharge him home with oral antibiotics. There was noted incidental finding of right ilium sclerotic/blastic lesion measuring 1.5 cm concerning for malignancy. He did state that he follows up with Dr. Verma as outpatient and he was advised for outpatient follow-up. During his course of stay did improve. The plan of care was discussed with patient and he verbalized understanding. On the day of discharge patient was in stable condition Discussed POC with Dr. [place] Meds Active Scripts Hydrocodone/Acetaminophen ([place] 5-325 Tablet) 1 Each Tablet, 1 EACH PO Q4 PRN for PAIN, #15 TAB Prov:ALVINA EDGAR GOLD [employer]ATER 10/04/18 Cephalexin* (Keflex*) 500 Mg Capsule, 500 MG PO Q8, #15 CAP Prov:ALVINA EDGAR GOLD PLATER 10/04/18 Reported Medications Terazosin Hcl* (Terazosin Hcl*) 2 Mg Capsule, 2 MG PO DAILY 10/03/18 Follow-up Plan Follow up with Dr. Juan Abrams 10/07/18 Office Follow up with Dr. Huan Gardner in 2 weeks for follow up on your kidney function Office Address [address] [place] [address] [id number] [place] [address] Office Follow up with Dr. Bart Eduardo in 2 weeks Primary Care Provider Florentino Arreola MD Time spent on discharge: > 30 minutes Pending Labs Laboratory Tests Test 10/04/18 05:09 White Blood Count 3.4 10^3/ul (4.8-10.8) Red Blood Count 4.35 10^6/ul (4.70-6.10) Hemoglobin 12.3 g/dl (14.0-18.0) Hematocrit 38.7 % (42.0-52.0) Mean Corpuscular Volume 89.0 fl (82.0-101.0) Mean Corpuscular Hemoglobin 28.3 pg (29.0-33.0) Mean Corpuscular Hemoglobin Concent 31.8 g/dl (32.0-37.0) Red Cell Distribution Width 13.7 % (11.5-14.5) Platelet Count 131 10^3/UL (140-415) Mean Platelet Volume 11.2 fl (7.4-10.4) Immature Granulocytes % 0.300 % (0.001-0.429) Neutrophils % 89.0 % (39.0-77.0) Lymphocytes % 8.6 % (15.0-51.0) Monocytes % 2.1 % (0.0-11.0) Eosinophils % 0.0 % (0.0-7.0) Basophils % 0.0 % (0.0-2.0) Nucleated Red Blood Cells % 0.0 /100WBC (0.0-0.0) Immature Granulocytes # 0.010 10^3/ul (0.0-0.031) Neutrophils # 3.0 10^3/ul (1.6-7.5) Lymphocytes # 0.3 10^3/ul (0.8-2.9) Monocytes # 0.1 10^3/ul (0.3-0.9) Eosinophils # 0.0 10^3/ul (0.0-0.5) Basophils # 0.0 10^3/ul (0.0-0.1) Nucleated Red Blood Cells # 0.0 10^3/ul (0.0-0.0) Sodium Level 139 mmol/L (135-144) Potassium Level 4.8 mmol/L (3.5-5.1) Chloride Level 110 mmol/L (97-110) Carbon Dioxide Level 22 mmol/L (21-31) Anion Gap 7 (5-13) Blood Urea Nitrogen 25 mg/dl (7-20) Creatinine 1.45 mg/dl (0.61-1.24) Est Glomerular Filtrat Rate mL/min mL/min (>60) Glucose Level 145 mg/dl (70-220) Calcium Level 7.9 mg/dl (8.4-10.2) ALVINA EDGAR NP Oct 04, 2018 14:32
== END 2018-10-04 15:07 | disposition home or self-care (01) | DRG 661 ==
LOC: E/R 15:27 → PP2 22:13
PROVIDERS: ADMIT Internal Medicine; ATTEND Internal Medicine
PROC: 0T778DZ Dilation of Left Ureter with Intraluminal Device, Via Natural or Artificial Opening Endoscopic (ICD-10-PCS; 2018-10-03)
PROC: 0TC78ZZ Extirpation of Matter from Left Ureter, Via Natural or Artificial Opening Endoscopic (ICD-10-PCS; principal; 2018-10-03 17:00)
DX: N13.2 Hydronephrosis with renal and ureteral calculous obstruction (principal); N40.0 Benign prostatic hyperplasia without lower urinary tract symptoms; D64.9 Anemia, unspecified; K63.9 Disease of intestine, unspecified
CPT/HCPCS: 71045; 74018; 74176; 74430; 80048; 80053; 81001; 82105; 82378; 83690; 83735; 84100; 84153; 84154; 85025; 85610; 85730; 87086; 93005; C2617; J0690; J0696; J1100; J1644; J1885; J2250; J2405; J3010; J7030; Q9967